=== PATIENT | female | born 1985 | race Caucasian/White ===

== ENCOUNTER → 2018-07-22 14:06 | Outpatient (CLI) | payer MEDICAID | END | disposition home or self-care (01) | LOC: D.NM 14:06 | DX: R10.13 Epigastric pain (principal); R11.2 Nausea with vomiting, unspecified ==

== ENCOUNTER → 2018-08-09 06:50 | Outpatient (CLI) | payer MEDICAID | END | disposition home or self-care (01) | LOC: D.NM 07-29 12:18 | DX: R10.13 Epigastric pain (principal); R11.2 Nausea with vomiting, unspecified ==

== ENCOUNTER → 2019-04-30 08:17 | Outpatient (CLI) | payer MEDICAID | END | disposition home or self-care (01) | LOC: D.RAD 08:17 | PROVIDERS: ATTEND Internal Medicine Gastroenterology | DX: R13.10 Dysphagia, unspecified (principal); R11.2 Nausea with vomiting, unspecified; R10.11 Right upper quadrant pain ==

== ENCOUNTER 2019-05-23 05:30 | Day surgery (SDC) | payer MEDICAID ==
[~2019-05-23] VITALS: Ht 157.5 cm; Wt 59.4 kg
[2019-05-23 05:20] LABS: BASOPHILS 0.4 % (0-2); EOSINOPHILS 2.3 % (0-7); HEMATOCRIT 41.8 % (36.0-48.0); HEMOGLOBIN 14.7 g/dL (12-16); IMMATURE GRANULOCYTES 0.2 % (0-5); LYMPHOCYTES 33.5 % (15-50); MCH 31.5 pg (26.0-34.0); MCHC 35.2 g/dL (31.0-37.0); MCV 89.5 fL (80.0-100.0); MEAN PLATELET VOLUME 11.3 fL (7.4-10.4); MONOCYTES 6.7 % (2-11); NEUTROPHILS 56.9 % (40-80); PLATELET COUNT 113 10x3/uL (130-400); RBC 4.67 10x6/uL (4.00-5.40); WBC 5.2 10x3/uL (4.8-10.8)
[2019-05-23 05:28] LABS: APTT 32.6 SECONDS (22.8-39.4); INR 1.03 (0.85-1.17)
[~2019-05-23 05:30] MED LIST: ALBUTEROL SULF8.5 GM INH; LEVOTHYROXINE100 MCG PO; LEXAPRO10 MG PO; PROTONIX40 MG PO; ZOFRAN8 MG PO
[2019-05-23 06:18] VITALS: BP 110/68; Ht 157.5 cm; Wt 59.4 kg
[2019-05-23] MEDS ORDERED: HYDROCODON-ACE1 EA10 PO (08:06)
--- NOTE | 2019-05-23 12:36 | NUR ---
1015 IV DC'D. CATHETER TIP INTACT. NO BLEEDING AT SITE AFTER PRESSURE HELD. BANDAID APPLIED.
--- NOTE | 2019-05-29 07:19 | OP ---
PATIENT NAME: MARIA ELENA FAIRBANKS MEDICAL RECORD: [id number] :83 LOCATION:D.OPS ADMISSION DATE: SURGEON: TONNY SHEIKH MD DATE OF OPERATION: 05/23/2019 PREOPERATIVE DIAGNOSES: 1. Biliary dyskinesia. 2. Asthma. 3. History of thyroid cancer status post total thyroidectomy. 4. Tobacco dependence syndrome. POSTOPERATIVE DIAGNOSES: 1. Biliary dyskinesia. 2. Asthma. 3. History of thyroid cancer status post total thyroidectomy. 4. Tobacco dependence syndrome. PROCEDURE: Laparoscopic cholecystectomy. SURGEON: Tonny Sheikh MD REPORT OF PROCEDURE: The patient's abdomen was prepped and draped in sterile fashion. A cutdown was made on the inferior aspect of the umbilicus, 0 Vicryls were placed in the fascia bilaterally and the fascia was incised with 15-blade. I then bluntly entered the peritoneal cavity and placed a 12-mm Santosh port. Under direct visualization, a 5 mm trocar was placed in the epigastrium and 2 more 5-mm trocars were placed in right subcostal region. The gallbladder was grasped and elevated. There were no signs of inflammatory changes. The cystic artery and cystic duct were dissected free and these were clipped proximally and distally and ligated in standard fashion. The gallbladder was taken off the liver bed using electrocautery and placed into the right upper quadrant. Any bleeding from the liver bed was then treated with electrocautery. At this point, the ports and insufflation were then removed and the gallbladder was taken out through the umbilicus. The umbilical fascia was closed with interrupted 0 Vicryls times 3. The wounds were irrigated out with normal saline, infused with 10 mL of 0.25% Marcaine with epinephrine. The skin incisions were all closed with subcutaneous 5-0 Monocryl and dressed appropriately. COMPLICATIONS: None. CONDITION: Stable. ANESTHESIA: General endotracheal and local. BLOOD LOSS: Minimal. TRANSINT:[id number] Voice Confirmation ID: [id number] DOCUMENT ID: [id number] OPERATIVE REPORT [id number] MARIA ELENA FAIRBANKS TONNY SEHIKH MD at 0719 CC: SCOTTY KEBEDE MD [id number] DICTATION DATE: 05/23/19 0810 GENETIC COUNSELLOR: 05/23/19 0837 [facility] [place] 05/23/19 [facility] [address] [place] [address]
== END 2019-05-23 10:43 | disposition home or self-care (01) ==
LOC: D.OPS 05:30 → D.PAN 08:00 → D.OPS 08:00
PROVIDERS: Anesthesiology; ATTEND Surgery
DX: K82.8 Other specified diseases of gallbladder (principal); J45.909 Unspecified asthma, uncomplicated; Z85.850 Personal history of malignant neoplasm of thyroid; E89.0 Postprocedural hypothyroidism; Z01.812 Encounter for preprocedural laboratory examination

== ENCOUNTER 2019-05-23 21:58 | Emergency (ER) | payer MEDICAID ==
[~2019-05-23] VITALS: Ht 157.5 cm; Wt 59.5 kg
[~2019-05-23 21:58] MED LIST changes: +HYDROCODON-ACE1 EA10 PO
[2019-05-23 22:03] VITALS: Ht 157.5 cm; Wt 59.5 kg
[2019-05-23 23:15] VITALS: BP 118/71
== END 2019-05-23 23:16 | disposition home or self-care (01) ==
LOC: D.ER 21:58
DX: G89.18 Other acute postprocedural pain (principal); R11.2 Nausea with vomiting, unspecified